=== PATIENT | female | born 1995 | race Caucasian/White ===

== ENCOUNTER 2019-04-17 12:15 | Emergency (ER) | payer OTHER ==
[2019-04-17 12:49] VITALS: BMI 16.9
[2019-04-17] MEDS ORDERED: ONDANSETRON *ODT* 4 MG TABLET SL ONE (13:01)
[2019-04-17] MEDS ORDERED: ONDANSETRON *ODT* 4 MG TABLET ONE (13:06)
[2019-04-17 13:56] VITALS: BP 100/60; PULSE 78; TEMP 98
--- NOTE | 2019-04-17 14:00 | PDOC ---
History of Present Illness - General Chief Complaint: Nausea/Vomiting Stated Complaint: VOMITED Time Seen by Provider: 04/17/19 12:41 - History of Present Illness Initial Comments: 04/17/19 13:52 23 years old no past medical history states she absolutely cannot be presents to the emergency department with acute nausea vomiting x2 nonbilious nonbloody. Patient was at work became nauseous and vomited. Has some mild persistent constant left upper quadrant pain nonradiating no lower abdominal discomfort. No fever chills no diarrhea pain is intermittent and crampy in nature Past History - Past Medical History Allergies/Adverse Reactions: Allergies Allergy/AdvReac Type Severity Reaction Status Date / Time egg Allergy Unknown Verified 04/17/19 12:34 Penicillins Allergy Unknown Verified 04/17/19 12:34 DAIRY Allergy Unknown Uncoded 04/17/19 12:34 Home Medications: Ambulatory Orders Ondansetron [Zofran *Odt*] 4 mg SL TID #21 od.tablet 04/17/19 COPD: No - Immunization History Immunization Up to Date: Yes - Psycho Social/Smoking Cessation Hx Smoking History: Never smoked Hx Alcohol Use: No Drug/Substance Use Hx: No Review of Systems - Review of Systems Comments:: 04/17/19 13:53 ROS: A complete review of 10 out of 10 review of systems is taken and is negative apart from what is previously mentioned below and in the HPI. *Physical Exam - Vital Signs Last Vital Signs Temp Pulse Resp BP Pulse Ox 98.6 F 79 16 129/74 100 04/17/19 12:27 04/17/19 12:27 04/17/19 12:27 04/17/19 12:27 04/17/19 12:27 - Physical Exam 04/17/19 13:53 Vitals: Triage Vital signs reviewed General Appearance: No acute distress, well nourished well developed, Head: Atraumatic, Cardiac: Regular rate and rhythym, no murmurs, no rubs, no gallops, Lungs: Clear to auscultation bilateral, good air movement bilaterally, Abdomen: Soft, non distended, normal bowel sounds, mild left upper quadrant pain no rebound or guarding extremities: Full range of motion to all extremities , no cyanosis, clubbing, or edema Skin: Warm and dry, no rashes or lesions, no rash, no petechiae Psych: Normal mood, normal affect ED Treatment Course - Medications Given in the ED: ED Medications Discontinued Medications Generic Name Dose Route Start Last Admin Trade Name Lissy PRN Reason Stop Dose Admin Ondansetron HCl 8 mg 04/17/19 13:01 04/17/19 13:08 Zofran Odt - SL 04/17/19 13:02 8 mg ONCE ONE Administration Medical Decision Making - Medical Decision Making 04/17/19 14:03 Well-appearing no apparent distress presents with 2 episodes of vomiting at approximately noon. No travel no sick contacts no pain prior to syndrome no lower abdominal discomfort after vomiting patient has some very mild left upper quadrant pain there is no rebound no guarding on examination there is no lower abdominal tenderness or rebound/guarding to palpation Patient was given Zofran in the emergency department she feels much better is now tolerating fluids by mouth her repeat abdominal examination is benign History and examination most consistent with viral gastritis versus foodborne illness she was instructed to return to the emergency department for any fever severe worsening pain or any lower abdominal discomfort we will treat with short course of Zofran fluids Findings, need for follow-up and strict return instructions discussed with patient. Discharge - Discharge Information Problems reviewed: Yes Clinical Impression/Diagnosis: Nausea & vomiting Qualifiers: Vomiting type: unspecified Vomiting Intractability: non-intractable Qualified Code(s): R11.2 - Nausea with vomiting, unspecified Condition: Good Disposition: HOME - Admission No - Additional Discharge Information Prescriptions: Ondansetron [Zofran *Odt*] 4 mg SL TID #21 od.tablet - Follow up/Referral - Patient Discharge Instructions Patient Printed Discharge Instructions: DI for Vomiting -- Adult Additional Instructions: Take Zofran as prescribed from today till tomorrow at noon small amounts of fluid. No solid foods until tomorrow after noon if no vomiting. Return to the emergency department for any fever severe worsening abdominal pain inability to tolerate fluids or any abdominal pain that moves to your lower abdomen. Follow- up with your primary care doctor within 1 week. - Post Discharge Activity Work/Back to School Note: Back to Work
== END 2019-04-17 14:12 | disposition home or self-care (01) ==
LOC: FER 12:15
DX: R11.2 Nausea with vomiting, unspecified (principal); Z88.0 Allergy status to penicillin; Z91.012 Allergy to eggs; Z91.011 Allergy to milk products
CPT/HCPCS: 99281-25; Q0162